=== PATIENT | male | born 1945 | race Caucasian/White ===

== ENCOUNTER 2021-05-08 14:51 | Emergency (ER) | payer MEDICARE ==
[~2021-05-08] VITALS: Ht 182.9 cm; Wt 95.5 kg
[2021-05-08 17:29] LABS: BASO # 0.04 K/mm3 (0.02-0.10); EOS # 0.22 K/mm3 (0.04-0.40); EOS % 2.3 % (0.0-4.0); HEMATOCRIT 35.8 % (42.0-52.0); HEMOGLOBIN 12.2 g/dL (13.5-18.0); LYMPH# 1.81 K/mm3 (1.50-4.00); MEAN CELL VOLUME 97 fl (78-100); MEAN CORPUSCULAR HEMOGLOBIN 33 pg (27-31); MEAN CORPUSCULAR HGB CONC 34 g/dL (33-37); MEAN PLATELET VOLUME 8.9 fl (7.4-10.4); MONO # 0.51 K/mm3 (0.20-0.80); NEU # 6.98 K/mm3 (1.40-6.50); PLATELET COUNT 447 K/mm3 (130-400); RED BLOOD COUNT 3.69 M/mm3 (4.20-5.60); RED CELL DISTRIBUTION WIDTH 11.3 % (11.5-14.5); WHITE BLOOD COUNT 9.6 K/mm3 (4.8-10.8)
[2021-05-08 17:34] LABS: ALBUMIN 2.9 g/dL (3.4-4.8)
[2021-05-08 17:35] LABS: CALCIUM 7.8 mg/dL (8.3-10.5)
[2021-05-08 17:37] LABS: TOTAL PROTEIN 7.9 g/dL (6.2-8.1)
[2021-05-08 17:38] LABS: TOTAL BILIRUBIN 0.3 mg/dL (0.2-1.2)
[2021-05-08 19:09] LABS: ERYTHROCYTE SEDIMENTATION RATE 125 mm/hr (0-20)
[2021-05-08] MEDS ORDERED: LANSOPRAZOLE30 M2 PO (19:31)
[2021-05-08] MEDS ORDERED: K-TAB10 MEQ PO (19:31)
[2021-05-08] MEDS ORDERED: NORCO 325 MG-51 TA1 PO (19:31)
[2021-05-08] MEDS ORDERED: ONE-A-DAY MEN'1 EAC2 PO (19:32)
[2021-05-08] MEDS ORDERED: FLOMAX0.4 MG PO (19:32)
[2021-05-08] MEDS ORDERED: LIPITOR 10M10 MG/TAB PO (19:32)
[2021-05-08] MEDS ORDERED: ZESTRIL40 M1 PO (19:33)
[2021-05-08] MEDS ORDERED: RESTORIL30 M1 PO (19:33)
[2021-05-08 21:43] VITALS: BP 167/106
== END 2021-05-08 21:43 | disposition home or self-care (01) ==
LOC: ED 14:51
PROVIDERS: Family Medicine
DX: L03.116 Cellulitis of left lower limb (principal); R79.82 Elevated C-reactive protein (CRP); I10 Essential (primary) hypertension; E78.5 Hyperlipidemia, unspecified; G47.00 Insomnia, unspecified; Z79.899 Other long term (current) drug therapy
CPT/HCPCS: J3370; J7040

== ENCOUNTER → 2021-05-09 | Outpatient (CLI) | payer MEDICARE ==
[~2021-05-09] MED LIST: EPIPEN 2-PAK1 MG/ML MR; FLOMAX0.4 MG PO; K-TAB10 MEQ PO; LANSOPRAZOLE30 M2 PO; LASIX20 M1 PO; LIPITOR 10M10 MG/TAB PO; METOPROLOL SUCC25 M1 PO; MORGIDOX 1X100100 MG PO; NORCO 325 MG-51 TA1 PO; ONE-A-DAY MEN'1 EAC2 PO; RESTORIL30 M1 PO; ZESTRIL40 M1 PO
== END ==
LOC: RAD 09:54 → AMSURD 09:54 → RAD 10:45
DX: M86.179 Other acute osteomyelitis, unspecified ankle and foot (principal)
CPT/HCPCS: A9585

== ENCOUNTER → 2021-05-09 | Outpatient (CLI) | payer MEDICARE ==
[~2021-05-09] VITALS: Ht 182.9 cm; Wt 95.5 kg
[2021-05-09 13:30] VITALS: BP 145/83
== END ==
LOC: AMSURD 13:16
DX: L03.90 Cellulitis, unspecified (principal)
CPT/HCPCS: J3370; J7050

== ENCOUNTER 2021-05-17 19:42 | Emergency (ER) | payer MEDICARE ==
[~2021-05-17] VITALS: Ht 182.9 cm; Wt 96.4 kg
[~2021-05-17 19:42] MED LIST changes: -EPIPEN 2-PAK1 MG/ML MR; -LASIX20 M1 PO; -METOPROLOL SUCC25 M1 PO; -MORGIDOX 1X100100 MG PO
[2021-05-17 20:20] LABS: BASO # 0.05 K/mm3 (0.02-0.10); EOS # 0.24 K/mm3 (0.04-0.40); EOS % 2.3 % (0.0-4.0); HEMATOCRIT 36.9 % (42.0-52.0); HEMOGLOBIN 12.4 g/dL (13.5-18.0); LYMPH# 2.02 K/mm3 (1.50-4.00); MEAN CELL VOLUME 98 fl (78-100); MEAN CORPUSCULAR HEMOGLOBIN 33 pg (27-31); MEAN CORPUSCULAR HGB CONC 34 g/dL (33-37); MEAN PLATELET VOLUME 9.3 fl (7.4-10.4); MONO # 0.69 K/mm3 (0.20-0.80); NEU # 7.59 K/mm3 (1.40-6.50); PLATELET COUNT 370 K/mm3 (130-400); RED BLOOD COUNT 3.75 M/mm3 (4.20-5.60); RED CELL DISTRIBUTION WIDTH 11.5 % (11.5-14.5); WHITE BLOOD COUNT 10.6 K/mm3 (4.8-10.8)
[2021-05-17] MEDS ORDERED: LASIX20 M1 PO (20:23)
[2021-05-17] MEDS ORDERED: MORGIDOX 1X100100 MG PO (20:24)
[2021-05-17 20:56] LABS: ALBUMIN 3.4 g/dL (3.4-4.8)
[2021-05-17 20:57] LABS: POTASSIUM 3.4 mmol/L (3.5-5.1)
[2021-05-17 20:58] LABS: CALCIUM 8.7 mg/dL (8.3-10.5)
[2021-05-17 20:59] LABS: TOTAL PROTEIN 8.6 g/dL (6.2-8.1)
[2021-05-17 21:01] LABS: TOTAL BILIRUBIN 0.4 mg/dL (0.2-1.2)
[2021-05-18] MEDS ORDERED: EPIPEN 2-PAK1 MG/ML MR (01:05)
[2021-05-18] MEDS ORDERED: METOPROLOL SUCC25 M1 PO (01:05)
[2021-05-18 01:20] VITALS: BP 152/97
== END 2021-05-18 01:20 | disposition home or self-care (01) ==
LOC: ED 19:42
PROVIDERS: Physician Assistant
DX: T78.3XXA Angioneurotic edema, initial encounter (principal); I10 Essential (primary) hypertension; E78.5 Hyperlipidemia, unspecified; E87.6 Hypokalemia; G89.29 Other chronic pain; Z79.899 Other long term (current) drug therapy; Z79.1 Long term (current) use of non-steroidal anti-inflammatories (NSAID)
CPT/HCPCS: J0171; J1200; J2930; J3490

== ENCOUNTER → 2021-08-16 | Day surgery (SDC) | payer MEDICARE ==
[~2021-08-16] MED LIST changes: +EPIPEN 2-PAK1 MG/ML MR; +LASIX20 M1 PO; +METOPROLOL SUCC25 M1 PO; +MORGIDOX 1X100100 MG PO
== END | disposition home or self-care (01) ==
LOC: MSO 08:48
DX: H25.11 Age-related nuclear cataract, right eye (principal)
CPT/HCPCS: 00142; J0171; J2250; V2632

== ENCOUNTER → 2021-12-20 | Day surgery (SDC) | payer MEDICARE | LOC: MSO 09-20 08:04 | DX: H25.041 Posterior subcapsular polar age-related cataract, right eye (principal) ==

== ENCOUNTER → 2023-06-12 | Outpatient (CLI) | payer MEDICARE | LOC: RAD 10:15 | DX: M19.032 Primary osteoarthritis, left wrist (principal); M19.031 Primary osteoarthritis, right wrist ==